=== PATIENT | female | born 1935 | race Caucasian/White ===

== ENCOUNTER 2018-02-21 14:14 | Inpatient (IN) | payer MEDICARE, OTHER ==
[2018-02-21] MEDS: BISACODYL 10 MG SUPP PR (15:26)
[2018-02-21] MEDS: morphine 2 MG INJ IV ×3 (15:27→23:46)
[2018-02-21] MEDS: ONDANSETRON 4 MG INJ IV (15:28)
[2018-02-21 15:44] LABS: ADD MAN DIFF? NO
[2018-02-21 15:49] LABS: ABNORMAL IP MESSAGE 1; BASOPHILS % 0.2 % (0.0-2.0); EOSINOPHILS # 0.1 10^3/ul (0.0-0.5); EOSINOPHILS % 0.3 % (0.0-7.0); HEMATOCRIT 40.1 % (37.0-47.0); HEMOGLOBIN 12.3 g/dl (12.0-16.0); LYMPHOCYTES # 1.4 10^3/ul (0.8-2.9); MEAN CORPUSCULAR HEMOGLOBIN 19.5 pg (29.0-33.0); MEAN CORPUSCULAR HGB CONC 30.7 g/dl (32.0-37.0); MEAN CORPUSCULAR VOLUME 63.4 fl (82.0-101.0); MEAN PLATELET VOLUME 11.2 fl (7.4-10.4); MONOCYTE # 0.7 10^3/ul (0.3-0.9); MONOCYTES % 4.7 % (0.0-11.0); NEUTROPHIL # 13.1 10^3/ul (1.6-7.5); NEUTROPHILS % 85.5 % (39.0-77.0); PLATELET COUNT 296 10^3/UL (140-415); RED BLOOD COUNT 6.32 10^6/ul (4.20-5.40); RED CELL DISTRIBUTION WIDTH 18.6 % (11.5-14.5)
[2018-02-21 15:49] LABS: WHITE BLOOD COUNT 15.4 10^3/ul (4.8-10.8)
[2018-02-21 16:00] LABS: POSITIVE DIFF @See below
[2018-02-21 16:06] LABS: ALANINE AMINOTRANSFERASE 12 IU/L (13-69); ALBUMIN 3.9 g/dl (3.3-4.9); ALBUMIN/GLOBULIN RATIO 0.95; ALKALINE PHOSPHATASE 127 IU/L (42-121); ANION GAP 15 (5-13); ASPARTATE AMINO TRANSFERASE 22 IU/L (15-46); BILIRUBIN,INDIRECT 0.6 mg/dl (0-1.1); BILIRUBIN,TOTAL 0.6 mg/dl (0.2-1.3); BLOOD UREA NITROGEN 15 mg/dl (7-20); CALCIUM 10.1 mg/dl (8.4-10.2); CARBON DIOXIDE 24 mmol/L (21-31); CHLORIDE 104 mmol/L (97-110); CREATININE 0.67 mg/dl (0.44-1.00); GLUCOSE 152 mg/dl (70-220); LIPASE 62 U/L (23-300); POTASSIUM 3.9 mmol/L (3.5-5.1); SODIUM 143 mmol/L (135-144)
[2018-02-21] MEDS: metroNIDAZOLE 500 MG/NS (PMX) 100 ML IVPB ×2 (17:04→23:47)
[2018-02-21] MEDS: HYDROmorphONE 0.5 MG/0.5 ML SYG IV (17:33)
[2018-02-21] MEDS: CIPROFLOXACIN 400MG/D5W 200 ML IVPB (18:39)
[2018-02-21 18:45] LABS: OCCULT BLOOD STOOL POSITIVE (NEGATIVE)
[2018-02-21] MEDS ORDERED: MAGNESIUM HYDROXIDE 30ML CUP PO (19:00)
[2018-02-21] MEDS ORDERED: hydrALAzine 20 MG INJ IV (19:00)
[2018-02-21] MEDS ORDERED: NACL 0.9% 3 ML SYG IV (19:00)
[2018-02-21] MEDS ORDERED: NITROGLYCERIN (SL) 0.4 MG TAB SL (19:00)
[2018-02-21] MEDS ORDERED: DOCUSATE SODIUM 100 MG CAP PO (19:00)
[2018-02-21] MEDS ORDERED: LORAZEPAM 2 MG INJ IV (19:00)
[2018-02-21] MEDS ORDERED: HYDROCODONE/APAP (5/325) TAB PO (19:00)
[2018-02-21] MEDS ORDERED: NA PHOSPHATE/BIPHOS 133 ML ENEMA PR (19:00)
[2018-02-21] MEDS ORDERED: ALBUTEROL/IPRATROPIUM (NEB) 3 ML AMP HHN (19:00)
[2018-02-21 20:20] LABS: PROTIME 15.4 Sec (11.9-14.9); PT RATIO 1.2
[2018-02-21 20:21] LABS: PARTIAL THROMBOPLASTIN TIME 22.2 Sec (23.0-35.0)
[2018-02-21] MEDS ORDERED: GLUCAGON 1 MG INJ IM (20:30)
[2018-02-21] MEDS ORDERED: GLUCOSE GEL 15 GRAM TUBE BUCCAL (20:30)
[2018-02-21] MEDS ORDERED: GLUCOSE GEL 15 GRAM TUBE PO ×2 (20:30)
[2018-02-21] MEDS ORDERED: DEXTROSE 50% 50 ML SYRINGE IV ×2 (20:30)
[2018-02-21 20:42] LABS: FREE T4 (FREE THYROXINE) 1.49 ng/dl (0.85-1.93)
[2018-02-21] MEDS: INSULIN ASPART [NOVOLOG] 3 ML PEN SC (21:00)
[2018-02-21] MEDS ORDERED: HEPARIN SODIUM 5,000 UNIT/ML VIAL SC (21:00)
[2018-02-21] MEDS: SOD CHLORIDE 0.45% 1,000 ML IV (21:10)
[2018-02-22] MEDS: INSULIN ASPART [NOVOLOG] 3 ML PEN SC ×6 (01:00→20:40)
[2018-02-22] MEDS ORDERED: ACCU-CHEK XX (02:00)
[2018-02-22] MEDS: morphine 2 MG INJ IV ×4 (05:28→20:47)
[2018-02-22] MEDS: PANTOPRAZOLE 40 MG INJ IV (05:28)
[2018-02-22] MEDS: metroNIDAZOLE 500 MG/NS (PMX) 100 ML IVPB ×3 (05:29→21:47)
[2018-02-22 05:34] LABS: ADD MAN DIFF? NO
[2018-02-22 05:37] LABS: WHITE BLOOD COUNT 17.8 10^3/ul (4.8-10.8)
[2018-02-22 05:37] LABS: ABNORMAL IP MESSAGE 1; BASOPHILS % 0.2 % (0.0-2.0); HEMATOCRIT 37.8 % (37.0-47.0); HEMOGLOBIN 11.4 g/dl (12.0-16.0); LYMPHOCYTES # 1.5 10^3/ul (0.8-2.9); LYMPHOCYTES % 8.5 % (15.0-51.0); MEAN CORPUSCULAR HGB CONC 30.2 g/dl (32.0-37.0); MEAN CORPUSCULAR VOLUME 63.1 fl (82.0-101.0); MEAN PLATELET VOLUME 11.3 fl (7.4-10.4); MONOCYTE # 1.3 10^3/ul (0.3-0.9); NEUTROPHIL # 14.9 10^3/ul (1.6-7.5); NEUTROPHILS % 83.8 % (39.0-77.0); PLATELET COUNT 303 10^3/UL (140-415); RED BLOOD COUNT 5.99 10^6/ul (4.20-5.40); RED CELL DISTRIBUTION WIDTH 18.1 % (11.5-14.5)
[2018-02-22 05:44] LABS: POSITIVE DIFF @See below
[2018-02-22 05:52] LABS: HEMOGLOBIN A1C 5.3 % (0-5.9)
[2018-02-22 05:56] LABS: CHOL/HDL RATIO 2.6 RATIO; HDL CHOLESTEROL 39 mg/dl (33-92); LDL CHOLESTEROL,CALCULATED 47 mg/dl; TRIGLYCERIDES 80 mg/dl (0-149)
[2018-02-22 05:56] LABS: CHOLESTEROL 102 mg/dl (100-200)
[2018-02-22 05:59] LABS: ANION GAP 12 (5-13); BLOOD UREA NITROGEN 14 mg/dl (7-20); CALCIUM 8.4 mg/dl (8.4-10.2); CARBON DIOXIDE 26 mmol/L (21-31); CHLORIDE 103 mmol/L (97-110); CREATININE 0.55 mg/dl (0.44-1.00); GLUCOSE 133 mg/dl (70-220); MAGNESIUM 2.3 mg/dl (1.7-2.5); PHOSPHORUS 3.3 mg/dl (2.5-4.9); POTASSIUM 3.3 mmol/L (3.5-5.1); SODIUM 141 mmol/L (135-144)
[2018-02-22] MEDS: CIPROFLOXACIN 400MG/D5W 200 ML IVPB ×2 (09:00→20:38)
[2018-02-22] MEDS: SOD CHLORIDE 0.45% 1,000 ML IV (09:14)
[2018-02-22] MEDS: CIPROFLOXACIN 200 MG/D5W IVPB 100 ML IV* ×2 (10:31→12:54)
[2018-02-22] MEDS: POTASSIUM CHLORIDE 100 ML IVPB ×2 (14:17→17:56)
[2018-02-23] MEDS: INSULIN ASPART [NOVOLOG] 3 ML PEN SC ×6 (01:00→20:40)
[2018-02-23] MEDS: SOD CHLORIDE 0.45% 1,000 ML IV ×2 (04:56→10:40)
[2018-02-23] MEDS: PANTOPRAZOLE 40 MG INJ IV (05:19)
[2018-02-23] MEDS: metroNIDAZOLE 500 MG/NS (PMX) 100 ML IVPB ×3 (05:19→23:07)
[2018-02-23 05:44] LABS: ADD MAN DIFF? NO
[2018-02-23 05:45] LABS: ABNORMAL IP MESSAGE 1; BASOPHILS % 0.2 % (0.0-2.0); EOSINOPHILS % 0.2 % (0.0-7.0); HEMATOCRIT 33.8 % (37.0-47.0); HEMOGLOBIN 10.3 g/dl (12.0-16.0); LYMPHOCYTES # 2.1 10^3/ul (0.8-2.9); LYMPHOCYTES % 11.3 % (15.0-51.0); MEAN CORPUSCULAR HEMOGLOBIN 19.4 pg (29.0-33.0); MEAN CORPUSCULAR HGB CONC 30.5 g/dl (32.0-37.0); MEAN CORPUSCULAR VOLUME 63.8 fl (82.0-101.0); MEAN PLATELET VOLUME 10.7 fl (7.4-10.4); MONOCYTE # 1.2 10^3/ul (0.3-0.9); MONOCYTES % 6.3 % (0.0-11.0); NEUTROPHIL # 14.9 10^3/ul (1.6-7.5); NEUTROPHILS % 81.6 % (39.0-77.0); PLATELET COUNT 247 10^3/UL (140-415); RED CELL DISTRIBUTION WIDTH 16.8 % (11.5-14.5)
[2018-02-23 05:45] LABS: WHITE BLOOD COUNT 18.3 10^3/ul (4.8-10.8)
[2018-02-23 06:06] LABS: POSITIVE DIFF @See below
[2018-02-23 06:13] LABS: ANION GAP 6 (5-13); BLOOD UREA NITROGEN 11 mg/dl (7-20); CALCIUM 7.8 mg/dl (8.4-10.2); CARBON DIOXIDE 28 mmol/L (21-31); CHLORIDE 104 mmol/L (97-110); CREATININE 0.59 mg/dl (0.44-1.00); GLUCOSE 113 mg/dl (70-220); POTASSIUM 4.5 mmol/L (3.5-5.1); SODIUM 138 mmol/L (135-144)
[2018-02-23] MEDS ORDERED: LIDOCAINE 2% (SDV) 5 ML INJ (07:00)
[2018-02-23] MEDS: CIPROFLOXACIN 400MG/D5W 200 ML IVPB ×2 (09:17→20:32)
[2018-02-23] MEDS: morphine 2 MG INJ IV ×2 (09:28→20:36)
[2018-02-23] MEDS ORDERED: FENTAnyl 50 MCG/ML VIAL (15:52)
[2018-02-23] MEDS: FENTAnyl 50 MCG/ML VIAL IV ×2 (16:10→16:20)
[2018-02-23] MEDS: ONDANSETRON 4 MG INJ IV (16:10)
[2018-02-23] MEDS: DEXTROSE 5%-0.45% NACL 1,000 ML IV (16:51)
[2018-02-24] MEDS: INSULIN ASPART [NOVOLOG] 3 ML PEN SC ×6 (01:00→21:00)
[2018-02-24] MEDS: DEXTROSE 5%-0.45% NACL 1,000 ML IV ×3 (03:50→17:10)
[2018-02-24 05:14] LABS: ADD MAN DIFF? NO
[2018-02-24 05:20] LABS: WHITE BLOOD COUNT 12.5 10^3/ul (4.8-10.8)
[2018-02-24 05:20] LABS: BASOPHILS % 0.2 % (0.0-2.0); EOSINOPHILS # 0.1 10^3/ul (0.0-0.5); EOSINOPHILS % 0.8 % (0.0-7.0); HEMOGLOBIN 9.7 g/dl (12.0-16.0); LYMPHOCYTES # 1.7 10^3/ul (0.8-2.9); LYMPHOCYTES % 13.3 % (15.0-51.0); MEAN CORPUSCULAR HEMOGLOBIN 19.4 pg (29.0-33.0); MEAN CORPUSCULAR HGB CONC 30.3 g/dl (32.0-37.0); MEAN CORPUSCULAR VOLUME 63.9 fl (82.0-101.0); MEAN PLATELET VOLUME 10.8 fl (7.4-10.4); MONOCYTE # 0.8 10^3/ul (0.3-0.9); MONOCYTES % 6.1 % (0.0-11.0); NEUTROPHIL # 9.9 10^3/ul (1.6-7.5); NEUTROPHILS % 79.2 % (39.0-77.0); PLATELET COUNT 235 10^3/UL (140-415); RED BLOOD COUNT 5.01 10^6/ul (4.20-5.40); RED CELL DISTRIBUTION WIDTH 16.5 % (11.5-14.5)
[2018-02-24 05:39] LABS: ANION GAP 9 (5-13); BLOOD UREA NITROGEN 4 mg/dl (7-20); CALCIUM 7.8 mg/dl (8.4-10.2); CARBON DIOXIDE 28 mmol/L (21-31); CHLORIDE 103 mmol/L (97-110); CREATININE 0.53 mg/dl (0.44-1.00); GLUCOSE 113 mg/dl (70-220); POTASSIUM 3.2 mmol/L (3.5-5.1); SODIUM 140 mmol/L (135-144)
[2018-02-24] MEDS: metroNIDAZOLE 500 MG/NS (PMX) 100 ML IVPB ×3 (05:40→21:52)
[2018-02-24] MEDS: PANTOPRAZOLE 40 MG INJ IV (05:40)
[2018-02-24] MEDS: morphine 2 MG INJ IV ×3 (05:42→21:56)
[2018-02-24] MEDS: CIPROFLOXACIN 400MG/D5W 200 ML IVPB ×2 (09:05→20:21)
[2018-02-24] MEDS: ACETAMINOPHEN 325 MG TAB PO (14:48)
[2018-02-25] MEDS: metroNIDAZOLE 500 MG/NS (PMX) 100 ML IVPB ×3 (05:19→22:17)
[2018-02-25] MEDS: PANTOPRAZOLE 40 MG INJ IV (05:19)
[2018-02-25] MEDS: DEXTROSE 5%-0.45% NACL 1,000 ML IV (05:19)
[2018-02-25 05:20] LABS: ADD MAN DIFF? NO
[2018-02-25 05:30] LABS: ABNORMAL IP MESSAGE 1; BASOPHILS % 0.3 % (0.0-2.0); EOSINOPHILS # 0.1 10^3/ul (0.0-0.5); EOSINOPHILS % 1.3 % (0.0-7.0); HEMATOCRIT 31.8 % (37.0-47.0); HEMOGLOBIN 9.7 g/dl (12.0-16.0); LYMPHOCYTES # 2.2 10^3/ul (0.8-2.9); LYMPHOCYTES % 22.5 % (15.0-51.0); MEAN CORPUSCULAR HEMOGLOBIN 19.3 pg (29.0-33.0); MEAN CORPUSCULAR HGB CONC 30.5 g/dl (32.0-37.0); MEAN CORPUSCULAR VOLUME 63.3 fl (82.0-101.0); MEAN PLATELET VOLUME 10.6 fl (7.4-10.4); MONOCYTE # 0.7 10^3/ul (0.3-0.9); MONOCYTES % 7.6 % (0.0-11.0); NEUTROPHIL # 6.6 10^3/ul (1.6-7.5); PLATELET COUNT 261 10^3/UL (140-415); RED BLOOD COUNT 5.02 10^6/ul (4.20-5.40); RED CELL DISTRIBUTION WIDTH 16.6 % (11.5-14.5)
[2018-02-25 05:30] LABS: WHITE BLOOD COUNT 9.6 10^3/ul (4.8-10.8)
[2018-02-25 05:46] LABS: POSITIVE DIFF @See below
[2018-02-25 05:48] LABS: ANION GAP 6 (5-13); BLOOD UREA NITROGEN 2 mg/dl (7-20); CALCIUM 7.9 mg/dl (8.4-10.2); CARBON DIOXIDE 32 mmol/L (21-31); CHLORIDE 101 mmol/L (97-110); GLUCOSE 112 mg/dl (70-220); POTASSIUM 3.4 mmol/L (3.5-5.1); SODIUM 139 mmol/L (135-144)
[2018-02-25] MEDS: ACETAMINOPHEN 325 MG TAB PO ×2 (07:01→17:37)
[2018-02-25] MEDS: INSULIN ASPART [NOVOLOG] 3 ML PEN SC ×4 (08:00→21:00)
[2018-02-25] MEDS: CIPROFLOXACIN 400MG/D5W 200 ML IVPB ×2 (08:11→21:07)
[2018-02-25] MEDS: POTASSIUM CHLORIDE (SR) 20 MEQ TAB PO (12:36)
[2018-02-25] MEDS: LOPERAMIDE 2 MG CAP PO (12:36)
[2018-02-25] MEDS: PROPOFOL 40 ML (17:34)
[2018-02-26] MEDS: ACETAMINOPHEN 325 MG TAB PO (00:07)
[2018-02-26 05:42] LABS: ADD MAN DIFF? NO
[2018-02-26 05:48] LABS: WHITE BLOOD COUNT 8.6 10^3/ul (4.8-10.8)
[2018-02-26 05:48] LABS: BASOPHILS % 0.3 % (0.0-2.0); EOSINOPHILS # 0.2 10^3/ul (0.0-0.5); EOSINOPHILS % 2.4 % (0.0-7.0); HEMATOCRIT 31.1 % (37.0-47.0); HEMOGLOBIN 9.6 g/dl (12.0-16.0); LYMPHOCYTES # 2.4 10^3/ul (0.8-2.9); LYMPHOCYTES % 27.7 % (15.0-51.0); MEAN CORPUSCULAR HEMOGLOBIN 19.5 pg (29.0-33.0); MEAN CORPUSCULAR HGB CONC 30.9 g/dl (32.0-37.0); MEAN CORPUSCULAR VOLUME 63.1 fl (82.0-101.0); MEAN PLATELET VOLUME 10.7 fl (7.4-10.4); MONOCYTE # 0.8 10^3/ul (0.3-0.9); MONOCYTES % 8.8 % (0.0-11.0); NEUTROPHIL # 5.2 10^3/ul (1.6-7.5); NEUTROPHILS % 60.6 % (39.0-77.0); PLATELET COUNT 293 10^3/UL (140-415); RED BLOOD COUNT 4.93 10^6/ul (4.20-5.40); RED CELL DISTRIBUTION WIDTH 16.6 % (11.5-14.5)
[2018-02-26] MEDS: metroNIDAZOLE 500 MG/NS (PMX) 100 ML IVPB ×2 (05:50→16:17)
[2018-02-26] MEDS: PANTOPRAZOLE 40 MG INJ IV (05:50)
[2018-02-26 06:17] LABS: ANION GAP 6 (5-13); BLOOD UREA NITROGEN 3 mg/dl (7-20); CALCIUM 7.9 mg/dl (8.4-10.2); CARBON DIOXIDE 31 mmol/L (21-31); CHLORIDE 102 mmol/L (97-110); GLUCOSE 99 mg/dl (70-220); POTASSIUM 3.2 mmol/L (3.5-5.1); SODIUM 139 mmol/L (135-144)
[2018-02-26] MEDS: INSULIN ASPART [NOVOLOG] 3 ML PEN SC ×3 (08:00→17:39)
[2018-02-26] MEDS: CIPROFLOXACIN 400MG/D5W 200 ML IVPB ×2 (08:17→22:39)
[2018-02-26] MEDS: morphine 2 MG INJ IV ×2 (08:18→22:37)
[2018-02-26] MEDS ORDERED: BARIUM SULF 2% 450 ML BTL (BERRY SMOOTHIE) PO (14:00)
[2018-02-26] MEDS: IOHEXOL 14.3 MG(I)/ML (ADULT) BTL PO ×2 (16:40→16:49)
[2018-02-26] MEDS: IODIXANOL LOCM 100 ML BTL (19:59)
[2018-02-26] MEDS: SOD CHLORIDE 0.9% 100 ML (19:59)
[2018-02-26] MEDS ORDERED: PATIENT'S OWN MEDICATION TOP (21:00)
[2018-02-26] MEDS: DICLOFENAC SODIUM 1% GEL 100 GM TUBE TP (21:00)
[2018-02-26] MEDS: POTASSIUM CHLORIDE (SR) 20 MEQ TAB PO (22:38)
[2018-02-27] MEDS ORDERED: INSULIN ASPART [NOVOLOG] 3 ML PEN SC
[2018-02-27] MEDS: metroNIDAZOLE 500 MG/NS (PMX) 100 ML IVPB ×4 (00:11→23:05)
[2018-02-27 05:13] LABS: ADD MAN DIFF? NO
[2018-02-27 05:23] LABS: BASOPHILS % 0.5 % (0.0-2.0); EOSINOPHILS # 0.3 10^3/ul (0.0-0.5); EOSINOPHILS % 3.1 % (0.0-7.0); HEMATOCRIT 32.1 % (37.0-47.0); HEMOGLOBIN 9.7 g/dl (12.0-16.0); LYMPHOCYTES # 2.3 10^3/ul (0.8-2.9); MEAN CORPUSCULAR HGB CONC 30.2 g/dl (32.0-37.0); MEAN CORPUSCULAR VOLUME 62.8 fl (82.0-101.0); MEAN PLATELET VOLUME 10.8 fl (7.4-10.4); MONOCYTE # 0.8 10^3/ul (0.3-0.9); MONOCYTES % 9.4 % (0.0-11.0); NEUTROPHIL # 4.6 10^3/ul (1.6-7.5); NEUTROPHILS % 57.5 % (39.0-77.0); PLATELET COUNT 306 10^3/UL (140-415); RED BLOOD COUNT 5.11 10^6/ul (4.20-5.40); RED CELL DISTRIBUTION WIDTH 16.2 % (11.5-14.5)
[2018-02-27 05:30] LABS: ANION GAP 6 (5-13); BLOOD UREA NITROGEN 3 mg/dl (7-20); CARBON DIOXIDE 30 mmol/L (21-31); CHLORIDE 102 mmol/L (97-110); CREATININE 0.45 mg/dl (0.44-1.00); GLUCOSE 98 mg/dl (70-220); POTASSIUM 3.6 mmol/L (3.5-5.1); SODIUM 138 mmol/L (135-144)
[2018-02-27] MEDS: Insulin NOVOLOG SS MILD Algorithm (NPO/TPN/ENTERAL FEEDS) SC ×4 (06:00→18:00)
[2018-02-27 06:02] LABS: CARCINOEMBRYONIC ANTIGEN 2.2 ng/ml (0.0-5.0)
[2018-02-27] MEDS: PANTOPRAZOLE 40 MG INJ IV (06:35)
[2018-02-27] MEDS: DICLOFENAC SODIUM 1% GEL 100 GM TUBE TP ×2 (09:00→21:46)
[2018-02-27] MEDS: CIPROFLOXACIN 400MG/D5W 200 ML IVPB ×2 (09:10→21:46)
[2018-02-27] MEDS: ONDANSETRON 4 MG INJ IV (09:16)
[2018-02-27] MEDS: morphine 2 MG INJ IV ×2 (09:16→21:53)
[2018-02-27] MEDS: BISACODYL (EC) 5 MG TAB PO ×2 (18:31)
[2018-02-27] MEDS: MAGNESIUM CITRATE 300 ML BTL PO (21:57)
[2018-02-27] MEDS: POLYETHYLENE GLYCOL 3350 119 GM POWDER PO (21:57)
[2018-02-28] MEDS: PANTOPRAZOLE 40 MG INJ IV (06:00)
[2018-02-28] MEDS: Insulin NOVOLOG SS MILD Algorithm (NPO/TPN/ENTERAL FEEDS) SC ×4 (06:00→18:00)
[2018-02-28] MEDS: metroNIDAZOLE 500 MG/NS (PMX) 100 ML IVPB ×3 (06:12→22:41)
[2018-02-28 06:13] LABS: ADD MAN DIFF? NO
[2018-02-28] MEDS: BISACODYL (EC) 5 MG TAB PO (06:16)
[2018-02-28] MEDS: POLYETHYLENE GLYCOL 3350 119 GM POWDER PO (06:17)
[2018-02-28 06:21] LABS: WHITE BLOOD COUNT 8.2 10^3/ul (4.8-10.8)
[2018-02-28 06:21] LABS: BASOPHILS % 0.4 % (0.0-2.0); EOSINOPHILS # 0.2 10^3/ul (0.0-0.5); EOSINOPHILS % 2.3 % (0.0-7.0); HEMATOCRIT 34.1 % (37.0-47.0); HEMOGLOBIN 10.4 g/dl (12.0-16.0); LYMPHOCYTES # 2.4 10^3/ul (0.8-2.9); LYMPHOCYTES % 29.4 % (15.0-51.0); MEAN CORPUSCULAR HEMOGLOBIN 19.1 pg (29.0-33.0); MEAN CORPUSCULAR HGB CONC 30.5 g/dl (32.0-37.0); MEAN CORPUSCULAR VOLUME 62.6 fl (82.0-101.0); MEAN PLATELET VOLUME 10.8 fl (7.4-10.4); MONOCYTE # 0.7 10^3/ul (0.3-0.9); MONOCYTES % 8.6 % (0.0-11.0); NEUTROPHIL # 4.8 10^3/ul (1.6-7.5); NEUTROPHILS % 58.7 % (39.0-77.0); PLATELET COUNT 361 10^3/UL (140-415); RED BLOOD COUNT 5.45 10^6/ul (4.20-5.40); RED CELL DISTRIBUTION WIDTH 16.6 % (11.5-14.5)
[2018-02-28 06:43] LABS: ANION GAP 8 (5-13); BLOOD UREA NITROGEN 2 mg/dl (7-20); CALCIUM 8.3 mg/dl (8.4-10.2); CARBON DIOXIDE 33 mmol/L (21-31); CHLORIDE 99 mmol/L (97-110); CREATININE 0.55 mg/dl (0.44-1.00); GLUCOSE 110 mg/dl (70-220); POTASSIUM 3.7 mmol/L (3.5-5.1); SODIUM 140 mmol/L (135-144)
[2018-02-28] MEDS ORDERED: LIDOCAINE 2% (SDV) 5 ML INJ (07:00)
[2018-02-28] MEDS: CIPROFLOXACIN 400MG/D5W 200 ML IVPB ×2 (09:10→21:17)
[2018-02-28] MEDS: DICLOFENAC SODIUM 1% GEL 100 GM TUBE TP ×2 (09:11→21:23)
[2018-02-28] MEDS: PROPOFOL 40 ML (15:41)
[2018-02-28] MEDS: morphine 2 MG INJ IV (21:23)
[2018-02-28] MEDS: INSULIN ASPART [NOVOLOG] 3 ML PEN SC (21:23)
[2018-03-01] MEDS: ACCU-CHEK XX (01:02)
[2018-03-01] MEDS: metroNIDAZOLE 500 MG/NS (PMX) 100 ML IVPB ×2 (05:35→14:47)
[2018-03-01] MEDS: PANTOPRAZOLE 40 MG INJ IV (05:35)
[2018-03-01 05:43] LABS: ADD MAN DIFF? NO
[2018-03-01 05:46] LABS: BASOPHILS % 0.4 % (0.0-2.0); EOSINOPHILS # 0.3 10^3/ul (0.0-0.5); EOSINOPHILS % 3.7 % (0.0-7.0); HEMATOCRIT 32.2 % (37.0-47.0); HEMOGLOBIN 9.8 g/dl (12.0-16.0); LYMPHOCYTES # 2.4 10^3/ul (0.8-2.9); MEAN CORPUSCULAR HEMOGLOBIN 18.9 pg (29.0-33.0); MEAN CORPUSCULAR HGB CONC 30.4 g/dl (32.0-37.0); MEAN CORPUSCULAR VOLUME 62.2 fl (82.0-101.0); MEAN PLATELET VOLUME 10.3 fl (7.4-10.4); MONOCYTE # 0.8 10^3/ul (0.3-0.9); MONOCYTES % 10.6 % (0.0-11.0); NEUTROPHIL # 3.6 10^3/ul (1.6-7.5); NEUTROPHILS % 50.7 % (39.0-77.0); PLATELET COUNT 345 10^3/UL (140-415); RED BLOOD COUNT 5.18 10^6/ul (4.20-5.40); RED CELL DISTRIBUTION WIDTH 16.4 % (11.5-14.5)
[2018-03-01 05:46] LABS: WHITE BLOOD COUNT 7.1 10^3/ul (4.8-10.8)
[2018-03-01 06:08] LABS: ANION GAP 10 (5-13); BLOOD UREA NITROGEN 5 mg/dl (7-20); CALCIUM 8.2 mg/dl (8.4-10.2); CARBON DIOXIDE 32 mmol/L (21-31); CHLORIDE 98 mmol/L (97-110); CREATININE 0.54 mg/dl (0.44-1.00); GLUCOSE 101 mg/dl (70-220); POTASSIUM 3.1 mmol/L (3.5-5.1); SODIUM 140 mmol/L (135-144)
[2018-03-01] MEDS: POTASSIUM CHLORIDE 20 MEQ POWDER FOR ORAL SOLN PO (07:11)
[2018-03-01] MEDS: INSULIN ASPART [NOVOLOG] 3 ML PEN SC ×2 (08:00→11:58)
[2018-03-01] MEDS: CIPROFLOXACIN 400MG/D5W 200 ML IVPB (09:02)
[2018-03-01] MEDS: DICLOFENAC SODIUM 1% GEL 100 GM TUBE TP (09:03)
== END 2018-03-01 18:00 | disposition home or self-care (01) | DRG 392 ==
LOC: E/R 14:14 → PP2 17:12
PROC: 0DB98ZX Excision of Duodenum, Via Natural or Artificial Opening Endoscopic, Diagnostic (ICD-10-PCS; principal; 2018-02-23 14:30)
PROC: 0DB68ZX Excision of Stomach, Via Natural or Artificial Opening Endoscopic, Diagnostic (ICD-10-PCS; 2018-02-23 14:30)
PROC: 0DBK8ZX Excision of Ascending Colon, Via Natural or Artificial Opening Endoscopic, Diagnostic (ICD-10-PCS; 2018-02-23 14:30)
PROC: 0DBM8ZX Excision of Descending Colon, Via Natural or Artificial Opening Endoscopic, Diagnostic (ICD-10-PCS; 2018-02-23 14:30)
DX: A09 Infectious gastroenteritis and colitis, unspecified (principal); K57.92 Diverticulitis of intestine, part unspecified, without perforation or abscess without bleeding; K55.1 Chronic vascular disorders of intestine; K63.5 Polyp of colon; E11.8 Type 2 diabetes mellitus with unspecified complications; I10 Essential (primary) hypertension; E78.00 Pure hypercholesterolemia, unspecified; K59.00 Constipation, unspecified; R91.1 Solitary pulmonary nodule; K29.70 Gastritis, unspecified, without bleeding
CPT/HCPCS: 36415; 71260; 74176; 74177; 80048; 80053; 80061; 82270; 82378; 82962; 83036; 83690; 83735; 84100; 84439; 84443; 85025; 85610; 85730; 87045; 87075; 88305; 88312; 92610; 96374; 96375; 97110; 97116; 97161; 97166; 97530; 97535; 99285-25